=== PATIENT | female | born 1980 | race Caucasian/White ===

== ENCOUNTER 2021-08-22 13:36 | Emergency (ER) | payer MEDICARE, MEDICAID ==
[~2021-08-22] VITALS: Ht 165.1 cm; Wt 79.0 kg
[2021-08-22 13:47] VITALS: BP 105/55
[2021-08-22] MEDS ORDERED: DIVA-112 PO (14:22)
== END 2021-08-22 16:07 | disposition home or self-care (01) ==
LOC: EMS 13:43
DX: F15.10 Other stimulant abuse, uncomplicated (principal); F31.9 Bipolar disorder, unspecified; F20.9 Schizophrenia, unspecified; F17.210 Nicotine dependence, cigarettes, uncomplicated; Z88.1 Allergy status to other antibiotic agents
CPT/HCPCS: 99281; Z7502